=== PATIENT | male | born 1965 | race Caucasian/White ===

== ENCOUNTER 2016-10-13 08:16 | Observation (INO) | payer OTHER ==
[~2016-10-13 08:16] MED LIST: Buffered Lidocaine 1% SYRIN* 3 ML/SYR SYRINGE INTRADERM ONE; Dexamethasone IV* 4 MG/ML 1 ML (4 MG) IV SLOW PU ONE; Famotidine IV* 10 MG/ML 2 ML (20 mg) IV ONE
[2016-10-13] MEDS ORDERED: Midazolam* 1 MG/ML 2 ML VIAL (2 MG) ONE (08:18)
[2016-10-13] MEDS ORDERED: fentaNYL* 50 MCG/ML 2 ML VIAL (100 MCG VIAL) ONE ×5 (08:18→13:32)
[2016-10-13] MEDS ORDERED: Propofol* 10 MG/ML 20 ML BTL IV PUSH ONE (08:18)
[2016-10-13] MEDS ORDERED: Succinylcholine* 20 MG/ML 10 ML VIAL ONE (08:18)
[2016-10-13] MEDS ORDERED: Ondansetron INJ* 2 MG/ML VIAL ONE (08:18)
[2016-10-13] MEDS ORDERED: Ketorolac INJ* 30 MG/ML 1 ML VIAL ONE (08:18)
[2016-10-13] MEDS ORDERED: Lidocaine 2% PF* 5 ML VIAL ONE (08:18)
[2016-10-13] MEDS ORDERED: Dexamethasone IV* 4 MG/ML 1 ML (4 MG) ONE (08:26)
[2016-10-13] MEDS ORDERED: Famotidine IV* 10 MG/ML 2 ML (20 mg) ONE (08:26)
[2016-10-13] MEDS ORDERED: ceFAZolin 2 GM PREMIX(*) 2 GM/50 ML BAG IVPB ONE (08:27)
[2016-10-13] MEDS ORDERED: Lidocain 1% EPI 1:100,000 * 30 ML MDV ONE (09:40)
[2016-10-13] MEDS ORDERED: Bacitracin IV* 50,000 UNITS INJ ONE (09:41)
[2016-10-13] MEDS ORDERED: Thrombin 5,000 UNITS* 1 APPLIC KIT - topical use - TOPICAL ONE (09:41)
[2016-10-13] MEDS ORDERED: DiMENhydriNATE IV* 50 MG/ML VIAL IV PUSH PRN (09:55)
[2016-10-13] MEDS ORDERED: Scopolamine 1.5 mg* PATCH TRANSDERM PRN (09:55)
[2016-10-13] MEDS ORDERED: Ondansetron INJ* 2 MG/ML VIAL IV PRN ×2 (09:55→11:32)
[2016-10-13] MEDS ORDERED: PROCHLORPERAZINE INJ 5 MG/ML 2 ML VIAL IV PRN (09:55)
[2016-10-13] MEDS ORDERED: Rocuronium* 10 MG/ML VIAL ONE (10:29)
[2016-10-13] MEDS ORDERED: Glycopyrrolate IV* 0.2 MG/ML 1 ML VIAL ONE ×2 (10:39→12:02)
[2016-10-13] MEDS ORDERED: HYDROmorphone* 1 MG/ML 1 ML SYR ONE ×4 (10:39→13:43)
[2016-10-13] MEDS ORDERED: Esmolol* 10 MG/ML 10 ML (100 mg) ONE (10:40)
[2016-10-13] MEDS ORDERED: Magnesium Hydroxide LIQ* 30 ML UDC PO PRN (11:32)
[2016-10-13] MEDS ORDERED: Acetaminophen TAB* 325 MG PO PRN (11:32)
[2016-10-13] MEDS ORDERED: Clindamycin 900 MG IVPREMIX(* 900 MG/50 ML SDV IV ONE (11:47)
[2016-10-13] MEDS ORDERED: Neostigmine Methylsulfate* 2 MG/2 ML SYRINGE ONE (12:02)
--- NOTE | 2016-10-13 12:34 | RAD ---
INDICATION: Revision of anterior cervical fusion. COMPARISON: March 23, 2016 TECHNIQUE/FINDINGS: A single crosstable lateral image taken at 1045 hours is submitted and shows a probe in the anterior soft tissues roughly at the C6 level.
[2016-10-13] MEDS: fentaNYL* 50 MCG/ML 2 ML VIAL (100 MCG VIAL) IV PRN ×4 (12:56→13:46)
[2016-10-13] MEDS: HYDROmorphone* 1 MG/ML 1 ML SYR IV PRN ×2 (13:45→13:51)
--- NOTE | 2016-10-13 16:26 | RAD ---
CPT II Codes: 6045F. Indication: Evaluate for leak of the proximal third of the esophagus. Fluoroscopic and radiographic examination of the esophagus was performed. Approximately 0.2 minutes of fluoroscopy time was used. Using water-soluble contrast and thin barium contrast material the oral and pharyngeal phase of deglutition appear unremarkable. No extraluminal collections are identified in the proximal esophagus. No evidence of obstruction is noted. The esophagus is otherwise unremarkable. IMPRESSION: No evidence of esophageal leak or perforation. Findings were discussed with Dr. Cartwright at the time of the examination.
[2016-10-13] MEDS: HYDROcodone/ACETAMIN 5-325 MG* 1 TAB PO PRN ×2 (17:28→21:53)
[2016-10-13] MEDS: Benzocaine/Menthol LOZ* 1 LOZENGE PO PRN (19:46)
[2016-10-13] MEDS: Clindamycin 600 MG IVPREMIX(* 600 MG/50 ML SDV IV SCH (19:46)
[2016-10-13] MEDS ORDERED: traZODone TAB* 100 MG PO SCH (21:00)
[2016-10-14] MEDS: HYDROcodone/ACETAMIN 5-325 MG* 1 TAB PO PRN ×2 (03:01→09:43)
--- NOTE | 2016-10-14 03:07 | CONS ---
INTRAOPERATIVE SURGICAL CONSULTATION REPORT: DATE OF CONSULT: 10/13/16 HISTORY OF PRESENT ILLNESS: I was contacted by the neurosurgeon to intraoperatively evaluate Mr. Nguyen, a 50-year-old gentleman, who presented to the hospital on the same day of surgery for a neck exploration for planned revision ACDF for C5 to C7. During the procedure, there was a concern of an esophageal injury. There were apparently some bubbles that had come up from the surgical site and there for concern for visualization of mucosa along the esophagus. Wound was opened at this point and retractor was in place. Incision was a right neck incision. Trachea and esophagus retracted to the left. The lateral retractors were removed. Hemostasis was noted to be excellent. Trachea appeared intact without evidence of injury. The esophagus coursed in a normal fashion without any discrete openings. We were able to retract this superiorly and no discrete openings in the esophagus were identified. With insertion of saline into the wound, no bubbles were appreciated despite Valsalva maneuvers. When no discrete injury was identified, we addressed the area of cautery in the spot of concern. This cauterized area was then imbricated with a 2-0 Polysorb suture in a [id number] fashion. The wound then irrigated, again hemostasis was excellent. The case was then passed back to Dr. Barakat, who did place a prevertebral Trace drain and closed. PLAN: Will be for an upper GI study at this point. If within normal limits, we will look towards starting a regular diet. CC: Dr. Viktor Srivastava; Dr. Viktor Barakat; [facility] * [id number]/[facility] #: [id number] [facility]
[2016-10-14] MEDS: Benzocaine/Menthol LOZ* 1 LOZENGE PO PRN (03:16)
[2016-10-14] MEDS: Clindamycin 600 MG IVPREMIX(* 600 MG/50 ML SDV IV SCH (04:07)
--- NOTE | 2016-10-14 07:36 | PN ---
Progress Note - Progress Note SOAP: Subjective: []POD # 1 Some hoarseness C/O incisional pain Long discussion with patient and family regarding aborted procedure Objective: []Neck soft Minimal drainage Assessment: [] Stable post op Plan: []D/C today D/C instructions given Will treat with antibiotics x one week
[2016-10-14 07:56] VITALS: BP 130/68
[2016-10-14] MEDS ORDERED: Sertraline* 100 MG TAB PO SCH (09:00)
[2016-10-14] MEDS ORDERED: Prazosin CAP* 1 MG PO SCH (09:00)
[2016-10-14] MEDS ORDERED: Influenza VAC *QUAD* 2016-17* 0.5 ML SYRINGE IM ONE (09:00)
[2016-10-16] MEDS ORDERED: Scopolomine PATCH Remove* 1 NOTE MISC PATCH OFF ONE (09:56)
--- NOTE | 2016-10-19 11:21 | OP ---
DATE OF OPERATION: 10/13/16 - ROOM #334 DATE OF : 69 PRIMARY SURGEONS: 1. Viktor Barakat MD 2. Chirag Cartwright MD WIND FIELD MANAGER: TOY Overton ANESTHESIOLOGIST: Cody Moctezuma MD ANESTHESIA: General. 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 OPERATIVE PROCEDURE: Exploration of prior anterior cervical diskectomy and fusion C5 to C7, exploration of possible esophageal injury with oversewing. DESCRIPTION OF PROCEDURE: After satisfactory general anesthesia was obtained, the patient was placed on the operating table in the supine position with the neck slightly extended and the head maintained in a horseshoe headrest. The anterior cervical region was clipped, prepped, and draped in a sterile manner for anterior cervical exposure and a skin incision was outlined over the mid portion of his cervical spine as assisted with a flanger radiograph. The incision was infiltrated with 1% Xylocaine with epinephrine after which it was turned in sharply to the level of the subcutaneous tissues. A superior and inferiorly based subcutaneous flap was then fashioned and the platysma muscle divided along the direction of its fibers. A dissection plane was carried down through scar tissue down to the anterior aspect of the spine. There was noted to be marked scarring over the previous vertebral plate that spanned from C5 to C7. This was dissected free utilizing sharp and blunt dissection. A self- retaining retractor was placed to facilitate exposure. The plate was skeletonized and the screws removed from the mid portion of the Synthes plate. The inferior aspect of the plate was surrounded by bony overgrowth and scar tissue. In drilling this area out, there was noted to be an area near the esophagus, which began to bleed with some air noted in the wound. The concern at this time was that there had been a possible esophageal injury. Urgent intraoperative consultation was obtained with Dr. Chirag Cartwright, who scrubbed in to assist to explore this area. It was Dr. Cartwright's feeling that there was not a definite esophageal injury; however, some of the soft tissues in the area where the air had been noted were oversewn with a Vicryl suture, which will be covered by him in a separate dictation. The plate was quite solidly adherent to the bone throughout the length of the fusion even after taking out the screws. Due to the potential contamination of the intraoperative field, the decision was made to simply replace the screws into the Synthes plate and leave it in position rather than risk putting new implants into a potentially contaminated field. The most superior of the screw in the C5 vertebral body had its locking mechanism stripped upon screw removal. This screw was not replaced. The screw in the C6 and C7 vertebral bodies were replaced without difficulty. The wound was then thoroughly irrigated and after assuring adequate hemostasis, a drain was placed in the prevertebral space and tunneled out toward the right side. The subcutaneous tissues were then reapproximated with 3-0 Vicryl and the skin closed with Steri-Strips. The estimated blood loss was less than 50 cc and the final sponge, padding, and needle counts were correct. The patient was taken to the recovery room, extubated, and in stable condition. [id number]/[facility] #: [id number] MTDKaylie
--- NOTE | 2016-10-23 03:08 | DS ---
DISCHARGE SUMMARY: DATE OF ADMISSION: 10/13/16 DATE OF DISCHARGE: 10/14/16 DISCHARGE DIAGNOSES: 1. Cervicalgia. 2. History of anterior cervical diskectomy and fusion, C5-6 and C6-7 surgery in 2008 or 2009 . PROPOSED PROCEDURE: Revision of anterior cervical diskectomy and fusion, C5-6, C6- 7 with hardware removal and placement of PEEK cages at C5-6 and C6-7. ACTUAL PROCEDURE: Exploration of anterior cervical diskectomy and fusion, C5-6 and C6-7 with repair of esophageal injury. HOSPITAL COURSE: This 50-year-old male underwent ACDF, C5-6 and C6-7 surgery in [address] Shearer with relatively good results. However, after a few years, he began experiencing similar symptoms as preop. Symptoms failed to improve over several years of conservative treatments and pain medications. He was then referred to Dr. Barakat for evaluation and consideration of treatment options. He was admitted at this time for elective surgical intervention. On the day of admission, he was taken to surgery, where under general anesthesia, exploration of the anterior cervical diskectomy and fusion at C5-6 and C6-7 with repair of esophageal injury operation was carried out. Proposed procedure had been revision of the anterior cervical diskectomy at C5- 6 and C6-7 with hardware removal and placement of PEEK cages. Postoperatively, he was feeling well. He was ambulating independently. He was eating soft foods and liquids without difficulty. He was experiencing throat soreness and hoarseness. The patient was prescribed oral pain medications during his hospitalization, which failed to control pain while considering the patient's treatment as an outpatient with Suboxone therapy. On the first postoperative day, he was discharged home to the care of his family. He will be seen in office in approximately 2 weeks for followup. DISCHARGE MEDICATIONS: No discharge medications prescribed. DISCHARGE INSTRUCTIONS: Including wound care and activity level were discussed with the patient and his . TOY EPSTEIN [id number]/[facility] #: [id number] MTDKaylie
== END 2016-10-14 10:40 | disposition home or self-care (01) ==
LOC: OR 08:16 → SSU 14:24
PROVIDERS: ADMIT Neurological Surgery; ATTEND Neurological Surgery
DX: M96.0 Pseudarthrosis after fusion or arthrodesis (principal); M54.2 Cervicalgia; Z88.6 Allergy status to analgesic agent; F17.200 Nicotine dependence, unspecified, uncomplicated
CPT/HCPCS: 72040; 74220; 87641; 88300; 90686; 96374; 96375; A9270-GY; G0378; J0330; J0690; J1100; J1170; J1885; J2250; J2405; J2704; J3010

== ENCOUNTER 2016-11-03 07:45 | Inpatient (IN) | payer OTHER ==
[2016-11-10] MEDS ORDERED: Buffered Lidocaine 1% SYRIN* 3 ML/SYR SYRINGE INTRADERM ONE (06:00)
[2016-11-10] MEDS ORDERED: Dexamethasone IV* 4 MG/ML 1 ML (4 MG) IV SLOW PU ONE (06:00)
[2016-11-10] MEDS ORDERED: Famotidine IV* 10 MG/ML 2 ML (20 mg) IV ONE (06:00)
[2016-11-10] MEDS ORDERED: Dexamethasone IV* 4 MG/ML 1 ML (4 MG) ONE (10:22)
[2016-11-10] MEDS ORDERED: Famotidine IV* 10 MG/ML 2 ML (20 mg) ONE (10:22)
[2016-11-10] MEDS ORDERED: ceFAZolin 2 GM PREMIX(*) 2 GM/50 ML BAG IVPB ONE (10:23)
[2016-11-10] MEDS ORDERED: Lidocain 1% EPI 1:100,000 * 30 ML MDV ONE (13:17)
[2016-11-10] MEDS ORDERED: Thrombin 5,000 UNITS* 1 APPLIC KIT - topical use - TOPICAL ONE (13:17)
[2016-11-10] MEDS ORDERED: Bacitracin IV* 50,000 UNITS INJ ONE (13:17)
[2016-11-10] MEDS ORDERED: Propofol* 10 MG/ML 20 ML BTL IV PUSH ONE (13:20)
[2016-11-10] MEDS ORDERED: Rocuronium* 10 MG/ML VIAL ONE (13:20)
[2016-11-10] MEDS ORDERED: Midazolam* 1 MG/ML 5 ML VIAL (5 MG) ONE (13:20)
[2016-11-10] MEDS ORDERED: fentaNYL* 50 MCG/ML 2 ML VIAL (100 MCG VIAL) ONE ×4 (13:20→16:28)
[2016-11-10] MEDS ORDERED: Lidocaine 2% PF* 5 ML VIAL ONE (13:20)
[2016-11-10] MEDS ORDERED: Remifentanil* 2 MG VIAL ONE (14:18)
[2016-11-10] MEDS ORDERED: PROCHLORPERAZINE INJ 5 MG/ML 2 ML VIAL IV PRN (14:42)
[2016-11-10] MEDS ORDERED: Acetaminophen TAB* 325 MG PO PRN (15:24)
[2016-11-10] MEDS ORDERED: Ondansetron INJ* 2 MG/ML VIAL IV PRN (15:24)
[2016-11-10] MEDS: fentaNYL* 50 MCG/ML 2 ML VIAL (100 MCG VIAL) IV PRN ×5 (15:47→16:29)
--- NOTE | 2016-11-10 15:47 | RAD ---
INDICATION: Cross table lateral acquired prior to cervical spinal fusion COMPARISON: Similar radiograph was acquired November 10, 2016 TECHNIQUE: A single crosstable lateral of the upper cervical spine was obtained. FINDINGS: Limited imaging of the cervical spine images the top 3 vertebra reliably. There is a surgical instrument pointing at the spinous process of the C3 vertebral body. Intraoperative devices include retractors, a head brace and the proximal portion of the endotracheal tube. IMPRESSION: Intraoperative radiographic findings as described above.
[2016-11-10] MEDS ORDERED: Morphine INJ* 10 MG/ML 1 ML SYRINGE ONE (15:50)
[2016-11-10] MEDS: Morphine INJ* 2 MG/ML 1 ML SYRINGE IV PRN ×2 (16:05→16:09)
[2016-11-10] MEDS: Morphine INJ* 4 MG/ML 1 ML SYRINGE IV PRN ×2 (16:13→20:23)
[2016-11-10] MEDS ORDERED: oxyCODONE/Acetamin 5/325 MG* TAB ONE (16:14)
[2016-11-10] MEDS: oxyCODONE/Acetamin 5/325 MG* TAB PO PRN ×2 (16:15→16:16)
[2016-11-10] MEDS: Nicotine PATCH 21 MG/24 HR* PATCH TRANSDERM SCH (19:20)
[2016-11-10] MEDS: Prazosin CAP* 1 MG PO SCH (21:50)
[2016-11-10] MEDS: traZODone TAB* 100 MG PO PRN (22:01)
[2016-11-11] MEDS: Morphine INJ* 4 MG/ML 1 ML SYRINGE IV PRN ×4 (04:59→20:21)
[2016-11-11] MEDS: Sertraline* 50 MG TAB PO SCH (07:53)
--- NOTE | 2016-11-11 07:53 | PN ---
Progress Note - Progress Note SOAP: Subjective: [This is a 50 year old male s/p posterior cervical fusion with instrumentation C5-7, POD #1. He complains of neck pain only somewhat controlled with Morphine IV. He reports improvement in the right fingers numbness that he experienced pre -op. He is eating and drinking without difficulty. ] Objective: [ Vital Signs: Temp Pulse Resp BP Pulse Ox 97.9 F 57 18 117/65 95 11/11/16 07:35 11/11/16 07:35 11/11/16 07:35 11/11/16 07:35 11/11/16 07:35 General: Alert and oriented. Laying in bed. Neuro: Motor and sensory intact. Extremities: Full ROM. DIONY drain output 11/10/16 11/10/16 11/10/16 17:00 19:31 22:45 Output, DIONY #1 50 50 20 11/11/16 11/11/16 11/11/16 01:05 03:25 05:35 Output, DIONY #1 20 30 20 11/11/16 06:24 Output, DIONY #1 10 ] Assessment: [Satisfactory post-op at this time. Pain persists despite IV Morphine. DIONY drain continues to collect significant amount of fluid. CT cervical spine shows good placement of screws.] Plan: [1. Admit to inpatient for continued monitoring of DIONY output. 2. Add Western 5/325mg 2 tab PO every 4 hours for pain, alternating with Morphine. 3. Add cyclobenzaprine 10mg PO TID PRN.]
[2016-11-11] MEDS: Nicotine PATCH 21 MG/24 HR* PATCH TRANSDERM SCH (07:55)
[2016-11-11] MEDS: Cyclobenzaprine TAB* 10 MG PO PRN ×3 (08:04→20:21)
[2016-11-11] MEDS: HYDROcodone/ACETAMIN 5-325 MG* 1 TAB PO PRN ×4 (08:43→22:45)
--- NOTE | 2016-11-11 08:54 | RAD ---
INDICATION: The patient is status post posterior transpedicular zana and screw fixation of C5-C7. COMPARISON: Intraoperative cervical spine radiograph dated November 10, 2016 TECHNIQUE: Axial source images were acquired with coronal and sagittal reformatting. FINDINGS: The patient's anterior plate and screw fixator at the C5-C7 level remains appropriately position compared to previous imaging. There are spacers at the intervertebral disc spaces. There has been interval placement of transpedicular screws bilaterally at C5, C6 and C7 with posterior fixation rods. A surgical drain is seen overlying the posterior column and there are surgical skin loly overlying the neck. There is straightening of the normal cervical lordosis but the vertebral bodies and facet joints are otherwise appropriately aligned. There is no definite hyperdense material in the thecal canal. There is a small amount of fluid in the precervical soft tissues. IMPRESSION: EXPECTED POSTOPERATIVE FINDINGS AFTER POSTERIOR TRANSPEDICULAR SCREW AND ZANA FIXATION OF C5-C7.
[2016-11-11] MEDS ORDERED: Nicotine Patch Removal NOTE PATCH OFF SCH (21:00)
[2016-11-11] MEDS: traZODone TAB* 100 MG PO PRN (22:47)
[2016-11-11] MEDS: Prazosin CAP* 1 MG PO SCH (23:17)
[2016-11-12] MEDS: Nicotine PATCH 21 MG/24 HR* PATCH TRANSDERM SCH (07:38)
[2016-11-12] MEDS: HYDROcodone/ACETAMIN 5-325 MG* 1 TAB PO PRN ×2 (07:43→11:48)
[2016-11-12] MEDS: Morphine INJ* 4 MG/ML 1 ML SYRINGE IV PRN ×2 (07:43→11:48)
--- NOTE | 2016-11-12 08:12 | PN ---
Progress Note - Progress Note SOAP: Subjective: [S/p posterior cervical decompression C5-6, C6-7, POD #2. Complains of incisional neck pain, moderately controlled with PO medications. Pt was up walking for 20-30 min yesterday. Eating and drinking without difficulty. Denies headache. Pre-op symptoms improving. ] Objective: [ Vital Signs: Temp Pulse Resp BP Pulse Ox 97.8 F 62 18 124/72 97 11/12/16 07:38 11/12/16 07:38 11/12/16 07:43 11/12/16 07:38 11/12/16 07:38 General: Alert and oriented. No distress. Neuro: Motor and sensory intact. Incision: Intact with loly. No swelling or infection. DIONY removed today. Extremities: Full ROM throughout. DIONY drain output 11/10/16 11/10/16 11/10/16 17:00 19:31 22:45 Output, DIONY #1 50 50 20 11/11/16 11/11/16 11/11/16 01:05 03:25 05:35 Output, DIONY #1 20 30 20 11/11/16 11/11/16 11/11/16 06:24 13:13 14:00 Output, DIONY #1 10 45 10 11/11/16 11/11/16 11/12/16 18:37 22:00 05:15 Output, DIONY #1 20 20 15 ] Assessment: [Satisfactory post-op. ] Plan: [1. Discharge home today. 2. Discharge instructions discussed with the patient. 3. Post-op pain management was discussed with the patient. He will receive 5 days of pain medication and then return to previous suboxone therapy.]
[2016-11-12] MEDS: Sertraline* 50 MG TAB PO SCH (08:33)
[2016-11-12 12:05] VITALS: BP 136/72
--- NOTE | 2016-11-16 04:17 | OP ---
DATE OF OPERATION: 11/10/16 - ROOM #338 DATE OF : 69 SURGEON: Viktor Barakat MD COUNT ROOM CLERK: TOY Overton ANESTHESIOLOGIST: Shireen Buitrago MD ANESTHESIA: General. PRE-OP DIAGNOSIS: Prior cervical nonunion C5 to C7. POST-OP DIAGNOSIS: Prior cervical nonunion C5 to C7. OPERATIVE PROCEDURE: Posterior cervical fusion C5 to C7 with posterior instrumentation, harvesting of autograft for fusion, fusion C5 to C7. DESCRIPTION OF PROCEDURE: The patient had previously undergone anterior cervical diskectomy and fusion several years ago complicated by bone graft reabsorption and cervical nonunion. He was taken to surgery at this time for a posterior cervical fusion procedure. After satisfactory general anesthesia was obtained. He was placed on the operating table in the prone position with the chest supported on chest rolls and the neck maintained in a neutral position utilizing the Galvez head rest. The posterior cervical region was then clipped, prepped, and draped in a sterile manner for posterior cervical laminectomy and the skin incision outlined from C4 to T1. This incision was infiltrated with 1% Xylocaine with epinephrine after which it was turned down sharply to the cervical fascia. The fascia was divided along the spinous processes from C4 to C7 and the paraspinal musculature stripped away from these posterior elements using the periosteal elevator and monopolar cautery. An intraoperative x-ray was obtained varying localization of the posterior elements of C5, C6, and C7. The dissection was carried out all the way laterally until the entire expands of the lateral masses were freed up and exposed. At this point, the spinous processes of C5 and C6 were removed and to be used as autograft in the procedure. The autograft was mixed with allograft and bony matrix to form bone logs to be used later in the procedure for fusion mass. Utilizing the [employer] lateral mass screw system, the screws were placed in the lateral masses of C5, C6, and C7 initially on the left side after which they were placed in the same areas on the right side. One rescue screw was required at the C6 level on the right side. The construct was then completed by placing rods on both sides and tightening them down. Just medial to the rods, the remaining lamina was decorticated with the [employer] Travis Drill after which bone logs were placed from C5 to C7 on either side just medial to the loren. A drain was then placed in the epidural space and tunneled out toward the left side. The fascia was then reapproximated with #0 Vicryl suture and the subcutaneous tissues closed with 3-0 Vicryl suture and the skin closed with skin clips. The estimated blood loss was 100 cc and the final sponge, padding, and needle counts were correct. The patient was taken to the recovery room, extubated, and in stable condition. [id number]/[facility] #: [id number] [facility]
== END 2016-11-12 12:30 | disposition home or self-care (01) | DRG 850 ==
LOC: AA 11-10 07:48 → INTOOBSV 11-10 10:22 → AA 11-10 10:22 → SSU 11-10 15:24 → OBSVTOIN 11-11 07:48
PROVIDERS: ADMIT Neurological Surgery; ATTEND Neurological Surgery
PROC: 0RG2071 Fusion of 2 or more Cervical Vertebral Joints with Autologous Tissue Substitute, Posterior Approach, Posterior Column, Open Approach (ICD-10-PCS; principal; 2016-11-10 11:15)
DX: M96.0 Pseudarthrosis after fusion or arthrodesis (principal); F32.9 Major depressive disorder, single episode, unspecified; F17.210 Nicotine dependence, cigarettes, uncomplicated; Y83.8 Other surgical procedures as the cause of abnormal reaction of the patient, or of later complication, without mention of misadventure at the time of the procedure; Y92.9 Unspecified place or not applicable; F43.10 Post-traumatic stress disorder, unspecified
CPT/HCPCS: 72040; 72125; 87641; A9270-GY; C1713; C1776; G0378; J0690; J1100; J2250; J2270; J2704; J3010

== ENCOUNTER 2016-12-09 09:54 | Emergency (ER) | payer OTHER ==
--- NOTE | 2016-12-09 12:18 | ED ---
Neurological HPI - HPI Summary HPI Summary: Pt here w/ acute post op neck pain since yesterday. Washing a coffee cup in the sink when he developed acute posterior neck pain as well as Lt scapular pain. He is also having new onset pain in neck w/ trying to lift upper extremities which he has not had since cervical fusion surgery on 11/17. This fusion of C5-6, C6-[address] Barakat. His wound was assessed and loly removed on 11/20 and appeared to be healing well with antibiotic prophylaxis. He was seen on 11/30 for wound dehissence as he noticed a collection of fluid over surgical site which had become hot and red and opened when he bent over to pick something up. He was seen in ED - this was followed by a washout with Dr. Mendes. Dr. Todd also consulted pt and cx of purulent wound drainage was found to have staph and strep. He was started on vancomycin and ceftriaxone via PICC. A drain was placed and this went well. Pt was d/c'd on 12/04 w/o pain and afebrile w/o white count. He has been home the past 3 days without pain until yesterday when he was washing a coffee cup in the sink and experienced acute posterior neck pain, scapular pain and arm pain as mentioned above. He feels best if he leans forward and to the right - he is pain free in this position only. Difficulty transitioning out of bed this morning d/t pain. He called his neurosurgeon's office yesterday and they called in more pain meds (narcotic) - he took some last night and some this morning w/ some relief but he no longer has these meds and pain persists. Reports his pain feels like the drain is still in place even though there is nothing in place at this time. Denies fever , chills, dysphagia, dyspnea, chest pain and does not feel the area is swollen or draining as it was before. Denies weakness, numbness into UE's and no STEINER or neurological deficits. Still smokes but has cut back to 6 cigarettes a day. He is aware this can affect his healing and outcome potential for success. NOTE: pt reports he stopped taking his saboxone on 11/30/2016 after wound dehissence w/ clean out. Has not taken since. - History of Current Complaint Chief Complaint: EDNeckComplaint Stated Complaint: SEVERE BACK PAIN Time Seen by Provider: 12/09/16 11:32 Hx Obtained From: Patient Pain Intensity: 10 - Additional Pertinent History Primary Care Physician: DIANA - Allergy/Home Medications Allergies/Adverse Reactions: Allergies Allergy/AdvReac Type Severity Reaction Status Date / Time Ibuprofen Allergy Intermediate Swelling Verified 11/30/16 10:29 Of eyes & Throat PMH/Surg Hx/FS Hx/Imm Hx Previously Healthy: No - recurring cervical pain s/p surgery 11/17/2016 Endocrine/Hematology History: Denies: Hx Diabetes, Hx Thyroid Disease Cardiovascular History: Denies: Hx Hypertension, Hx Pacemaker/ICD Respiratory History: Denies: Hx Asthma, Hx Chronic Obstructive Pulmonary Disease (COPD) GI History: Denies: Hx Ulcer Musculoskeletal History: Reports: Hx Back Problems, Other Musculoskeletal History - upper back surgery. Surgical repair of foot fracture. Sensory History: Denies: Hx Contacts or Glasses, Hx Hearing Aid Opthamlomology History: Denies: Hx Contacts or Glasses Neurological History: Reports: Other Neuro Impairments/Disorders - PTSD currently, right cervical radiculopathy s/p surg 11/17/16 Psychiatric History: Reports: Hx Anxiety - uses medication, Hx Depression - uses medication, Hx Post Traumatic Stress Disorder, Other Psychiatric Issues/ Disorders - substance abuse. - Surgical History Surgery Procedure, Year, and Place: NECK SURGERY. Surgical repair of left foot fracture. Hx Anesthesia Reactions: No - Immunization History Date of Tetanus Vaccine: Unsure Date of Influenza Vaccine: 2011 Infectious Disease History: No Infectious Disease History: Reports: Hx of Known/Suspected MRSA Denies: Hx Clostridium Difficile, Hx Hepatitis, Hx Human Immunodeficiency Virus (HIV), Traveled Outside the [place] in Last 30 Days - Family History Known Family History: Positive: Cardiac Disease, Hypertension, Diabetes, Other - CA - Social History Alcohol Use: Occasionally Alcohol Amount: maybe once a week 4-5 drinks Substance Use Type: Reports: None Substance Use Comment - Amount & Last Used: last heroin 08/11/15 Smoking Status (MU): Heavy Every Day Tobacco Smoker Type: Cigarettes Amount Used/How Often: 10 ciggs day Have You Smoked in the Last Year: Yes Physical Exam Vital Signs On Initial Exam: Initial Vitals Temp Pulse Resp BP Pulse Ox 97.7 F 93 16 111/74 97 12/09/16 09:59 12/09/16 09:59 12/09/16 09:59 12/09/16 09:59 12/09/16 09:59 Diagnostics - Vital Signs Vital Signs Temp Pulse Resp BP Pulse Ox 12/09/16 11:28 98.1 F 81 19 125/81 95 12/09/16 11:22 78 16 122/75 97 12/09/16 09:59 97.7 F 93 16 111/74 97 - Laboratory Result Diagrams: 12/09/16 12:50 12/09/16 12:50 Lab Statement: Any lab studies that have been ordered have been reviewed, and results considered in the medical decision making process. Course/Dx - Course Course Of Treatment: Spoke w/ Yuval - does not want imaging or labs. Pt has f/ u next week and Yuval is fine with him waiting until then unless he has danger s/sx of fever, chills, headache, weakness. He requests a consult with Dr. Harmon as this is pt's suboxone provider. Spoke w/ nurse at Faustino's office - will relay message to Faustino and call back w/ recommendation - Diagnoses Provider Diagnoses: Cervical pain - Physician Notifications Discussed Care of Patient With: Dr. Barakat Discharge - Discharge Plan Condition: Stable Disposition: HOME Prescriptions: oxyCODONE/Acetamin 5/325 MG* [Percocet 5/325 TAB*] 1 tab PO Q6H PRN #20 tab MDD 4 PRN Reason: Pain Patient Education Materials: Acute Neck Pain (ED) Referrals: Viktor Barakat MD [Medical Doctor] - Edie Harmon MD [Medical Doctor] - Additional Instructions: You have neck pain after surgery. Based on your visit today, you do not appear to have an infection here. You were provided with pain control and advised to follow-up with Dr. Barakat as well as Dr. Harmon. Call today to make appointments. *if you develop fever, chills, difficulty breathing or swallowing and/or numbness or weakness in upper extremities, return to ED
[2016-12-09] MEDS ORDERED: Morphine INJ* 4 MG/ML 1 ML SYRINGE IV ONE (12:55)
[2016-12-09] MEDS ORDERED: Ondansetron INJ* 2 MG/ML VIAL IV ONE (12:55)
[2016-12-09 13:10] LABS: Hematocrit 43 % (42-52); Mean Corpuscular HGB Conc 32 g/dl (31-36); Mean Corpuscular Hemoglobin 29 pg (27-31); Mean Corpuscular Volume 91 fL (80-94); Red Blood Count 4.76 10^6/ul (4.0-5.4); Red Cell Distribution Width 16 % (10.5-15); White Blood Count 8.3 10^3/ul (3.5-10.8)
[2016-12-09 13:11] LABS: Comments Flag Yes
[2016-12-09 13:12] LABS: Add Diff/Slide Review? Slide Review Added
[2016-12-09 13:29] LABS: Albumin 4.3 g/dL (3.2-5.2); BUN/Creatinine Ratio 11.5 (8-20); C Reactive Protein 3.3 mg/L (< 5.00); Calcium 9.5 mg/dL (8.6-10.3); EGFR African American 136.1 (>60); EGFR Non-African American 105.8 (>60); Globulin 3.6 g/dL (2-4); Total Bilirubin 0.4 mg/dL (0.2-1.0); Total Protein 7.9 g/dL (6.4-8.9)
[2016-12-09 13:48] VITALS: BP 121/98
== END 2016-12-09 14:43 | disposition home or self-care (01) ==
LOC: ED 09:54
DX: M54.2 Cervicalgia (principal)
CPT/HCPCS: 36415; 80053; 83605; 85025; 86140; 87040; 96365; 99282; J2270; J2405

== ENCOUNTER 2019-01-28 20:27 | Emergency (ER) | payer OTHER ==
[2019-01-28 20:48] VITALS: BP 126/73
--- NOTE | 2019-01-28 20:53 | ED ---
Psychiatric Complaint - HPI Summary HPI Summary: This patient is a 53 year old M brought in by ambulance to [facility] accompanied by his and [id number] with a chief complaint of increased anxiety from baseline this afternoon due to marital stress. [id number] states that she called an ambulance because he passed out at the bar this afternoon. Patient admits to drinking throughout the day. PMHx of anxiety. Regular medications include suboxone, Zoloft, trazadone, gabapentin and clonodine. - History Of Current Complaint Time Seen by Provider: 01/28/19 20:30 Hx Obtained From: Patient, Family/Cable Television Technician Onset/Duration: Lasting Hours Severity Initially: Mild Severity Currently: Mild Character: Anxious Aggravating Factor(s): Recent Stress, Alcohol Use Has Suicidal: Denies: Thoughts - Allergies/Home Medications Allergies/Adverse Reactions: Allergies Allergy/AdvReac Type Severity Reaction Status Date / Time MS Ibuprofen [Ibuprofen] Allergy Intermediate Swelling Verified 01/28/19 20:47 Of eyes & Throat Home Medications: Home Medications Gabapentin 100 mg PO TID 01/28/19 [History Confirmed 01/28/19] PMH/Surg Hx/FS Hx/Imm Hx Endocrine/Hematology History: Denies: Hx Diabetes, Hx Thyroid Disease Cardiovascular History: Denies: Hx Hypertension, Hx Pacemaker/ICD Respiratory History: Denies: Hx Asthma, Hx Chronic Obstructive Pulmonary Disease (COPD) GI History: Denies: Hx Ulcer Musculoskeletal History: Reports: Hx Back Problems, Other Musculoskeletal History - upper back surgery. Surgical repair of foot fracture. Sensory History: Denies: Hx Contacts or Glasses, Hx Hearing Aid Opthamlomology History: Denies: Hx Contacts or Glasses Neurological History: Reports: Other Neuro Impairments/Disorders - PTSD currently, right cervical radiculopathy s/p surg 11/17/16 Psychiatric History: Reports: Hx Anxiety - uses medication, Hx Depression - uses medication, Hx Post Traumatic Stress Disorder, Other Psychiatric Issues/ Disorders - substance abuse. - Surgical History Surgery Procedure, Year, and Place: NECK SURGERY. Surgical repair of left foot fracture. Hx Anesthesia Reactions: No - Immunization History Date of Tetanus Vaccine: Unsure Date of Influenza Vaccine: 2011 Infectious Disease History: Reports: Hx of Known/Suspected MRSA Denies: Hx Clostridium Difficile, Hx Hepatitis, Hx Human Immunodeficiency Virus (HIV) - Family History Known Family History: Positive: Cardiac Disease, Hypertension, Diabetes, Other - CA - Social History Alcohol Use: Occasionally Alcohol Amount: maybe once a week 4-5 drinks Substance Use Type: Reports: None Substance Use Comment - Amount & Last Used: last heroin 08/11/15 Hx Tobacco Use: Yes Smoking Status (MU): Light Every Day Tobacco Smoker Type: Cigarettes Amount Used/How Often: 6 cigs per day Have You Smoked in the Last Year: Yes Review of Systems Positive: Other - etoh intoxication Positive: Anxious All Other Systems Reviewed And Are Negative: Yes Physical Exam - Summary Physical Exam Summary: VITAL SIGNS: Reviewed. GENERAL: Patient is a well-developed and nourished male who is lying comfortable in the stretcher. Patient is not in any acute respiratory distress. HEAD AND FACE: No signs of trauma. No ecchymosis, hematomas or skull depressions. No sinus tenderness. EYES: PERRLA, EOMI x 2, No injected conjunctiva, no nystagmus. EARS: Hearing grossly intact. Ear canals and tympanic membranes are within normal limits. MOUTH: Oropharynx within normal limits. NECK: Supple, trachea is midline, no adenopathy, no JVD, no carotid bruit, no c- spine tenderness, neck with full ROM CHEST: Symmetric, no tenderness at palpation LUNGS: Clear to auscultation bilaterally. No wheezing or crackles. CVS: Regular rate and rhythm, S1 and S2 present, no murmurs or gallops appreciated. ABDOMEN: Soft, non-tender. No signs of distention. No rebound no guarding, and no masses palpated. Bowel sounds are normal. EXTREMITIES: FROM in all major joints, no edema, no cyanosis or clubbing. NEURO: Alert and oriented x 3. No acute neurological deficits. Speech is normal and follows commands. SKIN: Dry and warm Triage Information Reviewed: Yes Vital Signs Reviewed: Yes Diagnostics - Laboratory Result Diagrams: 01/28/19 21:17 01/28/19 21:17 Lab Statement: Any lab studies that have been ordered have been reviewed, and results considered in the medical decision making process. - EKG 2126 Cardiac Rate: NL - 86 BPM EKG Rhythm: Sinus Rhythm Summary of EKG Findings: Q waves in inferior leads Course/Dx - Course Course Of Treatment: 53 year old M brought in by ambulance to [facility] accompanied by his and [id number] with a chief complaint of increased anxiety from baseline this afternoon due to marital stress. [id number] states that she called an ambulance because he passed out at the bar this afternoon. Bloodwork and EKG obtained without significnat abnormalities. Patient admits to drinking throughout the day. Patient wants to go home and will sign out AMA. Patient's and sister are in the room. I explained the risk of syncope, permanent disability and . Patient understands and will sign out AMA. - Differential Dx/Clinical Impression Provider Diagnosis: Syncope Discharge - Sign-Out/Discharge Documenting (check all that apply): Patient Departure - AMA Patient Received Moderate/Deep Sedation with Procedure: No - Discharge Plan Condition: Stable Disposition: AGAINST MEDICAL ADVICE Referrals: Glenn Otto MD [Primary Care Provider] - - Billing Disposition and Condition Condition: STABLE Disposition: Against Medical Advice - Attestation Statements Document Initiated by Luizae: Yes Documenting Scribe: Jennifer Bridges Provider For Whom Aaliyah is Documenting (Include Credential): Chelsey Lucio MD Scribe Attestation: IJennifer, scribed for Chelsey Lucio MD on 01/28/19 at 2311. Scribe Documentation Reviewed: Yes Provider Attestation: The documentation as recorded by the Jennifer ziegler accurately reflects the service I personally performed and the decisions made by me, Chelsey Lucio MD Status of Scribe Document: Viewed
[2019-01-28] MEDS ORDERED: NS 0.9% 1000 ML** 1,000 ML IV ONE (21:04)
[2019-01-28 21:24] LABS: ABS Eosinophils 0.1 10^3/ul (0-0.6); ABS Monocytes 0.4 10^3/ul (0-0.8); ABS Neutrophils 4.5 10^3/ul (1.5-7.7); Hematocrit 43 % (42-52); Hemoglobin 14.5 g/dL (14.0-18.0); Mean Corpuscular HGB Conc 34 g/dL (31-36); Mean Corpuscular Hemoglobin 30 pg (27-31); Mean Corpuscular Volume 89 fL (80-94); Mean Platelet Volume 9.7 fL (7.4-10.4); Nucleated Red Blood Cells % 0.1; Platelet Count 179 10^3/uL (150-450); Red Blood Count 4.83 10^6 /uL (4.18-5.48); Red Cell Distribution Width 14 % (10-15)
[2019-01-28 21:31] LABS: INR 0.95 (0.82-1.09)
[2019-01-28 21:40] LABS: Albumin 4.6 g/dL (3.2-5.2); Albumin/Globulin Ratio 1.3 (1-3); BUN/Creatinine Ratio 11.8 (8-20); Calcium 9.6 mg/dL (8.6-10.3); EGFR African American 72.3 (>60); EGFR Non-African American 59.8 (>60); Globulin 3.5 g/dL (2-4); Magnesium 2.7 mg/dL (1.9-2.7); Potassium 4.4 mmol/L (3.5-5.0); Total Bilirubin 0.2 mg/dL (0.2-1.0); Total Protein 8.1 g/dL (6.4-8.9)
== END 2019-01-28 22:03 | disposition left against medical advice (07) ==
LOC: ED 20:27
DX: R55 Syncope and collapse (principal); F10.129 Alcohol abuse with intoxication, unspecified; F41.9 Anxiety disorder, unspecified; F17.210 Nicotine dependence, cigarettes, uncomplicated; F43.10 Post-traumatic stress disorder, unspecified; Z79.899 Other long term (current) drug therapy
CPT/HCPCS: 36415; 80053; 80320; 83735; 84484; 85025; 85610; 85730; 93005; 99283; G0480